=== PATIENT | male | born 1960 | race Caucasian/White ===

== ENCOUNTER 2023-03-16 09:25 | Outpatient (CLI) | payer OTHER, BC, SELFPAY | END 2023-03-16 09:26 | disposition home or self-care (01) | PROVIDERS: PCP Internal Medicine; Visit Provider Family Medicine | DX: M17.11 Unilateral primary osteoarthritis, right knee (principal); M25.561 Pain in right knee | CPT/HCPCS: 64454 ==

== ENCOUNTER 2023-08-26 14:43 | Emergency (ER) | payer OTHER, BC, SELFPAY ==
[2023-08-26] VITALS (12 sets, daily range): BP systolic 128–143; BP diastolic 90–97; PULSE 66–70; RESP 20; TEMP 36.7; O2SAT 94–98; BMI 32.3
--- NOTE | 2023-08-26 15:25 | CRLHL7_ITS ---
For Patients: As a result of the Century Cures Act, medical imaging exams and procedure reports are released immediately into your electronic medical record. You may view this report before your referring provider. If you have questions, please contact your health care provider. INDICATION: Lightheaded episode. TECHNIQUE: CTA chest was acquired with 95 cc Isovue-370 IV contrast. COMPARISON: None. FINDINGS: Heart and vasculature: No sign of pulmonary embolism to the level of the distal segmental pulmonary arteries. Cardiomegaly with coronary artery calcifications. Mitral valve prosthesis. Mild ascending aorta aneurysm measuring 4.0 centimeters. Pulmonary arterial enlargement. Lungs and pleura: Scattered atelectasis. Incidental 9 millimeter left lung base pulmonary nodule. No pleural effusions, pleural thickening, or pneumothorax. Lymph nodes/mediastinum: No mediastinal, hilar, or axillary adenopathy. Chest wall: No masses. Upper abdomen: Few indeterminate right renal cysts. No acute or significant findings. Bones: Unremarkable for age. IMPRESSION: No sign of pulmonary embolism to the level of the distal segmental pulmonary arteries. Evaluation of segmental branches is nondiagnostic secondary to the contrast bolus and motion artifact. Indeterminate 9 millimeter left lower lobe pulmonary nodule. Recommend correlation with prior imaging if available. If not, recommend short-term follow-up chest CT in 3 months. Mild ascending aortic aneurysm measuring 4.0 centimeters. Limited evaluation for aortic dissection given early phase of contrast, however no large dissection seen. Cardiomegaly with coronary artery calcifications. Pulmonary hypertension. No focal consolidations. Few indeterminate right renal cysts. These could be followed up with outpatient nonemergent ultrasound or correlation with prior imaging if available. Please note that all CT scans at this facility use dose modulation, iterative reconstruction, and/or weight-based dosing when appropriate to reduce radiation dose to as low as reasonably achievable. Dictated by Jamel Pelletier MD @ 08/26/2023 5:51:06 PM (Electronically Signed)
--- NOTE | 2023-08-26 15:29 | ED_ITS ---
HPI - Dizziness General Chief Complaint: Dizziness/Vertigo Stated Complaint: Lightheaded Time Seen by Provider: 08/26/23 15:00 History of Present Illness HPI Narrative: This 63-year-old male comes in reporting episodes of lightheadedness over the past few weeks. He states that he feels fine currently but can reproduce such symptoms somewhat regularly when exerting himself or when standing upright. He is not on any new medications. He does follow with a respiratory care technician and reports a history of a thoracic aortic aneurysm that is being monitored. He had an echocardiogram about 6 months ago. He does not report any chest pain. He does feel some shortness of breath on occasion when ambulating up stairs. Related Data Allergies Allergy/AdvReac Type Severity Reaction Status Date / Time lisinopril Allergy Verified 08/26/23 14:59 metronidazole [From Flagyl] Allergy Verified 08/26/23 14:59 environmental Allergy Uncoded 08/26/23 14:59 Review of Systems Status of ROS: Reports: 10 or more systems reviewed and unremarkable except as noted in History and below Narrative: Constitutional: No fevers, no weight gain or loss. Eyes: No discharge. No vision changes. HENT: No congestion, no sore throat, no ear pain. Cardiovascular: No chest pain, no palpitations. Respiratory: No wheezes, no cough. Occasional shortness of breath when exerting himself and at other times doing the same maneuvers he does not feel short of breath. Gastrointestinal: No abdominal pain, no vomiting, no diarrhea. Genitourinary: No dysuria, no hematuria. Musculoskeletal: Normal range of motion. Skin: No rashes, no pruritis. Neurological: No weakness, sensory change, speech change. He reports lightheadedness episodes as described above. Endo/Heme/Allergies: No bruising or bleeding. No polydipsia. Pysch: no suicidality, no anxiety, no insomnia. All other systems reviewed and are negative. Exam Narrative: Exam Narrative: Constitutional: Well-developed, well-nourished, no acute distress. HEENT: Normocephalic, atraumatic. Neck: Normal range of motion. Nontender. Supple. Heart: Regular. No murmurs. Normal rate. Intact distal pulses. Lungs: Clear to auscultation. No chest discomfort. No wheezes, rhonchi, or rales. Abdomen: Normal bowel sounds. Nontender. No rebound tenderness. Genitalia: Deferred. Back: No midline tenderness. Normal range of motion. Extremities: Normal range of motion. No injury. Skin: Intact. No rash. Warm. No erythema or pallor. Neurologic: No altered sensation. No weakness. Alert and oriented. Psychiatric: No suicidality. No anxiety or depression. No insomnia. Nursing notes and vitals signs are reviewed. Const: Vital Signs, click to edit/add: Vital Signs - 24 hr 08/26/23 14:59 08/26/23 15:04 08/26/23 15:05 Temperature 98.1 F Pulse Rate 67 69 Pulse Rate [Pulse Oximeter] 70 Respiratory Rate 20 Blood Pressure 128/92 H Blood Pressure [Ri ght Upper Arm] 128/92 H Pulse Oximetry 97 98 96 Oxygen Delivery Me thod Room Air 08/26/23 15:15 08/26/23 15:30 08/26/23 15:31 Temperature Pulse Rate 69 66 66 Pulse Rate [Pulse Oximeter] Respiratory Rate Blood Pressure 133/92 H Blood Pressure [Ri ght Upper Arm] Pulse Oximetry 97 95 96 Oxygen Delivery Me thod 08/26/23 15:45 08/26/23 15:46 08/26/23 16:00 Temperature Pulse Rate 66 66 67 Pulse Rate [Pulse Oximeter] Respiratory Rate Blood Pressure 143/90 H Blood Pressure [Ri ght Upper Arm] Pulse Oximetry 95 95 95 Oxygen Delivery Me thod 08/26/23 16:02 08/26/23 16:15 08/26/23 16:30 Temperature Pulse Rate 68 68 67 Pulse Rate [Pulse Oximeter] Respiratory Rate Blood Pressure 143/97 H Blood Pressure [Ri ght Upper Arm] Pulse Oximetry 96 95 94 Oxygen Delivery Me thod Course Vital Signs Vital signs: Initial Vital Signs Temperature 98.1 F 08/26/23 14:59 Temperature Source Temporal Artery Scan 08/26/23 14:59 Pulse Rate 70 08/26/23 14:59 Pulse Rhythm Regular 08/26/23 14:59 Respiratory Rate 20 08/26/23 14:59 Blood Pressure 128/92 H 08/26/23 14:59 Blood Pressure Mean 104 08/26/23 14:59 Blood Pressure Position Supine 08/26/23 14:59 Pulse Oximetry 97 08/26/23 14:59 Oxygen Delivery Method Room Air 08/26/23 14:59 Vital Signs Temperature 98.1 F 08/26/23 14:59 Pulse Rate 70 08/26/23 14:59 Respiratory Rate 20 08/26/23 14:59 Blood Pressure 128/92 H 08/26/23 14:59 Pulse Oximetry 97 08/26/23 14:59 Oxygen Delivery Method Room Air 08/26/23 14:59 Temperature 98.1 F 08/26/23 14:59 Pulse Rate 67 08/26/23 16:30 Respiratory Rate 20 08/26/23 14:59 Blood Pressure 143/97 H 08/26/23 16:02 Pulse Oximetry 94 08/26/23 16:30 Oxygen Delivery Method Room Air 08/26/23 14:59 MDM - Dizziness MDM Narrative Medical decision making narrative: This patient comes in reporting occasions of feeling lightheaded and sometimes some shortness of breath. These circumstances seem to occur more often when he is at work. He states that he works a shift from 3:30 p.m. to 11:00 p.m.. He is not on any new medications. An IV was established and labs are acquired which returned with reassuring findings. He states that he has a thoracic aortic aneurysm that is being monitored and wonders if something may be happening with this. He does not report any chest pain. CT imaging of the chest with IV contrast shows a 4 cm aneurysm that is unchanged. There is no sign of pulmonary embolism. He does have a small 9 mm pulmonary nodule in the left lung. I advised him to follow-up with his primary physician regarding this and to review his medications going forward. We did not find any obvious cause to explain his symptoms that he is describing. I did provide some possibilities of what may be happening episodically to decrease supply of oxygen and glucose to his brain cells causing him to feel lightheaded. The patient is reassured with these results. He is okay to be discharged home to resume normal and current plans. Lab Data Labs: Lab Results 08/26/23 08/26/23 Range/Units 15:43 16:34 WBC 6.20 (4.50-11.00) K/uL RBC 5.00 (4.30-5.90) m/uL Hgb 15.8 (13.5-17.5) gm/dL Hct 44.3 (37.0-53.0) % MCV 89 (80-100) fL MCH 32 (26-34) pg MCHC 36 (32-36) gm/dL RDW Coeff of [place] 12.2 (11.5-15.5) % Plt Count 182 (140-440) K/uL Neut % (Auto) 46.1 (42.0-72.0) % Lymph % (Auto) 34.8 (20-44) % [place] % (Auto) 13.2 H (0.0-11.0) % Eos % (Auto) 5.0 (0.0-7.0) % Baso % (Auto) 0.6 (0.0-3.0) % Neut # (Auto) 2.85 (1.7-7.0) K/uL Lymph # (Auto) 2.16 (0.90-2.90) K/uL [place] # (Auto) 0.80 (0.00-0.90) K/UL Eos # (Auto) 0.31 (0.00-0.50) K/uL Baso # (Auto) 0.04 (0.00-0.30) K/uL Abs Immat Gran (auto) 0.02 (0.00-0.30) K/uL Imm/Tot Granulo (auto) 0.3 % Sodium 140 (135-149) mmol/L Potassium 4.4 (3.6-5.1) mmol/L Chloride 106 (96-114) mmol/L Carbon Dioxide 22 (20-32) mmol/L Anion Gap 12 (7-15) mEq/L BUN 22 (7-30) mg/dL Creatinine 0.7 (0.5-1.5) mg/dL Estimated Creat Clear 86.56 Estimated GFR 104 ml/min Glucose 98 (60-115) mg/dL Calcium 10.0 (8.4-10.6) mg/dL Magnesium 2.0 (1.5-2.6) mg/dL POC Troponin I 0.01 (0.01-0.04) ng/ml Imaging Data CT scan - chest: Radiologist's impression: No sign of pulmonary embolism to the level of the distal segmental pulmonary arteries. Evaluation of segmental branches is nondiagnostic secondary to the contrast bolus and motion artifact. Indeterminate 9 millimeter left lower lobe pulmonary nodule. Recommend correlation with prior imaging if available. If not, recommend short-term follow-up chest CT in 3 months. Mild ascending aortic aneurysm measuring 4.0 centimeters. Limited evaluation for aortic dissection given early phase of contrast, however no large dissection seen. ECG Data Attestation: I personally reviewed and interpreted this ECG as follows: Interpretation: Sinus rhythm with occasional premature ventricular complexes. Rate is 69 beats per minute. No specific ST or T-wave abnormalities. Prolonged QT interval. Discharge Plan Discharge Clinical Impression: Episodic lightheadedness Patient Disposition: Home, Self-Care Condition: Stable Additional Instructions: Continue current plans. Follow up with primary physician to review medications. Return if symptoms are recurrent or worsening. Follow Up/Referrals: Coty De La Torre [Primary Care Provider] - Stand Alone Forms: [employer] Info Instructions
[2023-08-26 15:51] LABS: Basophils Absolute Auto 0.04 K/uL (0.00-0.30); Basophils Percent Auto 0.6 % (0.0-3.0); Eosinophils Absolute Auto 0.31 K/uL (0.00-0.50); Hematocrit 44.3 % (37.0-53.0); Hemoglobin* 15.8 gm/dL (13.5-17.5); Immature Granulocytes Abs Auto 0.02 K/uL (0.00-0.30); Immature Granulocytes Pct Auto 0.3 %; Lymphocytes Absolute Auto 2.16 K/uL (0.90-2.90); Lymphocytes Percent Auto 34.8 % (20-44); Mean Corpuscular HGB Conc 36 gm/dL (32-36); Mean Corpuscular Hemoglobin 32 pg (26-34); Mean Corpuscular Volume 89 fL (80-100); Monocytes Percent Auto 13.2 % (0.0-11.0); Neutrophils Absolute Auto 2.85 K/uL (1.7-7.0); Neutrophils Percent Auto 46.1 % (42.0-72.0); Platelet Count* 182 K/uL (140-440); RDW Coefficient of Variation % 12.2 % (11.5-15.5)
[2023-08-26 15:53] LABS: Slide Review Reflex No
[2023-08-26 16:02] LABS: Chloride* 106 mmol/L (96-114); Potassium* 4.4 mmol/L (3.6-5.1); Sodium* 140 mmol/L (135-149)
[2023-08-26 16:05] LABS: Anion Gap 12 mEq/L (7-15); Carbon Dioxide* 22 mmol/L (20-32); Creatinine* 0.7 mg/dL (0.5-1.5); Est. Creatinine Clearance* 86.56; Estimated Glomerular Filt Rate 104 ml/min
[2023-08-26 16:06] LABS: Blood Urea Nitrogen* 22 mg/dL (7-30); Glucose* 98 mg/dL (60-115)
[2023-08-26 16:35] LABS: Troponin, Point-of-Care* 0.01 ng/ml (0.01-0.04)
== END 2023-08-26 18:41 | disposition home or self-care (01) ==
PROVIDERS: Emergency Provider Emergency Medicine Emergency Medical Services; PCP Internal Medicine
DX: R42 Dizziness and giddiness (principal)
CPT/HCPCS: 36415; 71275; 80048; 83735; 84484; 85025; 93005; 99284; 99285; Q9967